=== PATIENT | male | born 1955 | race Caucasian/White ===

== ENCOUNTER → 2016-09-15 | Outpatient (CLI) | payer OTHER ==
[2016-09-15 17:19] LABS: CH 32.5; CHCM 32.6; HCT 43.4 % (39.0-53.0); HDW 2.39; MCH 32.3 pg (25.0-35.0); MCHC 32.3 g/dL (31.0-37.0); MCV 100.1 fL (80.0-100.0); Mean Platelet Volume 7.9; RBC 4.34 m/uL (4.30-5.90); RDW 13.3 % (11.5-15.5); WBC 8.8 k/uL (3.8-10.6)
[2016-09-15 17:28] LABS: Anion Gap 6 mmol/L; Blood Urea Nitrogen 18 mg/dL (9-20); Calcium 9.4 mg/dL (8.4-10.2); Carbon Dioxide 28 mmol/L (22-30); Chloride 107 mmol/L (98-107); Glucose 83 mg/dL (74-99); Non-African American GFR(MDRD) >60 (>60 ml/min/1.73 sqM); Potassium 4.8 mmol/L (3.5-5.1); Sodium 141 mmol/L (137-145)
== END | disposition home or self-care (01) ==
LOC: LABWHC1 16:55
PROVIDERS: ATTEND Internal Medicine Interventional Cardiology
DX: I25.10 Atherosclerotic heart disease of native coronary artery without angina pectoris (principal)
CPT/HCPCS: 36415; 80048; 85027

== ENCOUNTER 2016-09-19 06:32 | Day surgery (SDC) | payer OTHER ==
[2016-09-17 10:18] VITALS: BMI 25.6
[~2016-09-19 06:32] MED LIST: ALPRAZolam 0.25 MG TAB PO PRN; ALPRAZolam 0.5 MG TAB PO PRN; ASPIRIN 325 MG TAB PO STA; ATORVASTATIN 80 MG TAB PO STA; NITROGLYCERIN SL TABS 0.4 MG TAB SUBLINGUAL PRN; SODIUM CHLORIDE 0.9% 1,000 ML in EMPTY BAG 1 BAG IV ONE
[2016-09-19 07:01] VITALS: RESP 16; TEMP 98.1
[2016-09-19] MEDS ORDERED: diphenhydrAMINE 50 MG/ML 1 ML VIAL IVP ONE (07:49)
[2016-09-19] MEDS ORDERED: MIDAZOLAM 2 MG/2 ML VIAL IV ONE (07:49)
[2016-09-19] MEDS ORDERED: LIDOCAINE 2% INJ 20 MG/ML SQ ONE (07:54)
[2016-09-19] MEDS: VERAPAMIL SYRINGE (5 MG/10 ML) INTRAARTER ONE ×2 (07:56→08:11)
[2016-09-19] MEDS ORDERED: HYDROmorphone 2 MG/ML 1 ML SYRINGE IV ONE (08:06)
[2016-09-19] MEDS ORDERED: IOHEXOL 350 MG/ML 125ML BOTTLE INJ ONE (08:10)
[2016-09-19] MEDS ORDERED: RX INFO: IV CONTRAST WAS GIVEN 1 EACH MISC MISCELLANE PRN (08:26)
[2016-09-19] MEDS ORDERED: SODIUM CHLORIDE 0.9% 1,000 ML IV SCH (08:30)
[2016-09-19 14:27] VITALS: BP 118/79; PULSE 57
--- NOTE | 2016-09-19 17:16 | CC ---
DATE OF SERVICE: 09/19/2016 PERFORMING PHYSICIAN: Erik Cullen M.D., green chain operator. PROCEDURES PERFORMED: 1. Selective right and left coronary angiogram. 2. Left heart catheterization. 3. Left ventriculography. INDICATION: This is a pleasant 61-year-old male patient who is known to have coronary artery disease and prior stenting of the LAD. He was experiencing chest discomfort and exertional dyspnea. He was brought today to undergo a heart catheterization in view of the classical anginal symptoms. APPROACH: Right radial artery. COMPLICATIONS: None. LEVEL OF SEDATION: Moderate, with sedation length of 32 minutes. PROCEDURE DESCRIPTION: After obtaining informed consent, the patient was brought to the cardiac energy systems laboratory director. The right radial artery was cannulated using micropuncture technique. The micropuncture wire passed easily. Then I placed a 6 Lebanese sheath in the right radial artery. Subsequently I did selective right and left coronary angiogram using JR4 and JL3.5 catheters. After that I did left heart catheterization and LV gram using a 6 Lebanese pigtail catheter. The procedure was completed without any complication. SELECTIVE CORONARY ANGIOGRAM: 1. The right coronary artery. The right coronary artery is 100% occluded in the proximal portion and fills by collateral from the left coronary system. 2. The left main is angiographically normal. It bifurcates into the left circumflex and left anterior descending artery. 3. The left circumflex is a large-caliber vessel. It is a non-dominant vessel. The left circumflex is angiographically normal. In the mid portion it gives rise to a large first OM branch, which seems to be angiographically normal. 4. Left anterior descending artery. The proximal LAD is stented with mild in-stent restenosis. The mid LAD appeared to have mild disease only. The LAD distally appeared to be angiographically normal. The LAD in the mid portion gives rise to 2 small diagonal branches. HEMODYNAMICS: The left ventricular end-diastolic pressure was 16 to 20 mmHg and no gradient was identified across the aortic valve. Left ventriculography was performed in the MCCLELLAN projection using a power injection. The left ventricular systolic function appeared to be normal with an ejection fraction of 60%. CONCLUSION: 1. Chronic total occlusion of the proximal RCA which fills by collateral from the left coronary system. 2. Mild in-stent restenosis involving the proximal LAD stent. 3. Mild disease involving the left circumflex coronary artery. 4. Elevated left ventricular end-diastolic pressure. 5. Normal left ventricular systolic function. POST-PROCEDURE MANAGEMENT: 1. Maximize medical treatment. 2. Follow up with the patient.
--- NOTE | 2016-09-19 17:24 | LTR ---
September 19, 2016 RE: Khalif Soni Dear Juventino, Mr. Khalif Soni underwent a heart catheterization that showed chronic total occlusion of the right coronary artery which fills by collateral from the left coronary system. The LAD stent seems to be patent with a good flow. In view of this anatomy, I recommended maximizing medical treatment. I will follow up with the patient very closely, and I will keep you updated regarding him. Thank you for allowing me to participate in his care. Sincerely, EMILY SKINNER MD
== END 2016-09-19 14:05 | disposition home or self-care (01) ==
LOC: CATHCVL 06:32
PROVIDERS: ATTEND Internal Medicine Interventional Cardiology
DX: I25.10 Atherosclerotic heart disease of native coronary artery without angina pectoris (principal); I25.82 Chronic total occlusion of coronary artery; T82.858A Stenosis of other vascular prosthetic devices, implants and grafts, initial encounter; E78.5 Hyperlipidemia, unspecified; F17.210 Nicotine dependence, cigarettes, uncomplicated; Y71.3 Surgical instruments, materials and cardiovascular devices (including sutures) associated with adverse incidents; Z88.0 Allergy status to penicillin; Z82.49 Family history of ischemic heart disease and other diseases of the circulatory system; Z82.3 Family history of stroke; Z79.82 Long term (current) use of aspirin; Z79.899 Other long term (current) drug therapy
CPT/HCPCS: 93458; 99152; 99153; C1894; J2001; J2250; J1170; J1200; J1644; Q9967

== ENCOUNTER 2018-05-07 08:59 | Emergency (ER) | payer OTHER ==
[2018-05-07 09:09] VITALS: RESP 16
[2018-05-07] MEDS ORDERED: SODIUM CHLORIDE 0.9% 1,000 ML IV STA (09:12)
[2018-05-07 09:33] LABS: Basophils % (A) 0 %; Eosinophils # (A) 0.3 k/uL (0-0.7); Eosinophils % (A) 3 %; HCT 47.8 % (39.0-53.0); HGB 15.7 gm/dL (13.0-17.5); Lymphocytes # (A) 2.5 k/uL (1.0-4.8); Lymphocytes % (A) 24 %; MCH 32.3 pg (25.0-35.0); MCHC 32.9 g/dL (31.0-37.0); MCV 98.4 fL (80.0-100.0); Monocytes # (A) 0.5 k/uL (0-1.0); Monocytes % (A) 5 %; Neutrophils # (A) 6.8 k/uL (1.3-7.7); Neutrophils % (A) 66 %; Platelet Count 233 k/uL (150-450); RBC 4.86 m/uL (4.30-5.90); RDW 12.9 % (11.5-15.5); WBC 10.4 k/uL (3.8-10.6)
[2018-05-07 09:35] LABS: Appearance,Urine Clear (Clear); Bilirubin,Urine Negative (Negative); Blood,Urine Negative (Negative); Color,Urine Light Yellow; Glucose,Urine (UA) Negative (Negative); Ketones,Urine Negative (Negative); Leukocyte Esterase,Urine Negative (Negative); Nitrite,Urine Negative (Negative); Protein,Urine Negative (Negative); Specific Gravity,Urine 1.007 (1.001-1.035); Urobilinogen,Urine <2.0 mg/dL (<2.0)
[2018-05-07 09:46] LABS: INR 0.9 (<1.2); Partial Thromboplastin Time 25.7 sec (22.0-30.0); Prothrombin Time 9.9 sec (9.0-12.0)
--- NOTE | 2018-05-07 09:47 | ED ---
Abdominal Pain HPI - General Chief Complaint: Abdominal Pain Stated Complaint: lower abdominal pain Time Seen by Provider: 05/07/18 09:12 Source: patient, RN notes reviewed Mode of arrival: ambulatory Limitations: no limitations - History of Present Illness Initial Comments: 62-year-old male presents emergency Department chief complaint of lower abdominal pain 3 days. Patient states nothing makes the pain feel better or worse. He denies any change in bowel habits including diarrhea, melena, hematochezia, constipation. Patient has no dysuria, hematuria, nausea, vomiting. Patient states that the pain is all in her lower abdomen nonradiating. Denies any flank pain no history of bowel surgery or abdominal surgeries. - Related Data Previous Rx's Medication Instructions Recorded Ciprofloxacin HCl [Cipro] 500 mg PO Q12HR #20 tablet 05/07/18 metroNIDAZOLE [Flagyl] 500 mg PO TID #30 tab 05/07/18 Allergies Allergy/AdvReac Type Severity Reaction Status Date / Time Penicillins Allergy Unknown Verified 05/07/18 09:35 Childhood Review of Systems ROS Statement: Those systems with pertinent positive or pertinent negative responses have been documented in the HPI. ROS Other: All systems not noted in ROS Statement are negative. Past Medical History Past Medical History: Coronary Artery Disease (CAD), Myocardial Infarction (CT) Last Myocardial Infarction Date:: 1998 History of Any Multi-Drug Resistant Organisms: None Reported Past Surgical History: Heart Catheterization, Heart Catheterization With Stent, Orthopedic Surgery, Tonsillectomy Additional Past Surgical History / Comment(s): previous heart cath x2, one stent , left hand sx Past Anesthesia/Blood Transfusion Reactions: No Reported Reaction Date of Last Stent Placement:: unsure Past Psychological History: No Psychological Hx Reported Smoking Status: Current every day smoker Past Alcohol Use History: Occasional Past Drug Use History: None Reported - Past Family History Mother Family Medical History: Cancer General Exam Limitations: no limitations General appearance: alert, in no apparent distress Head exam: Present: atraumatic, normocephalic, normal inspection Eye exam: Present: normal appearance, PERRL, EOMI. Absent: scleral icterus, conjunctival injection, periorbital swelling ENT exam: Present: normal exam, normal oropharynx, mucous membranes moist Neck exam: Present: normal inspection, full ROM. Absent: tenderness, meningismus, lymphadenopathy Respiratory exam: Present: normal lung sounds bilaterally. Absent: respiratory distress, wheezes, rales, rhonchi, stridor Cardiovascular Exam: Present: regular rate, normal rhythm, normal heart sounds. Absent: systolic murmur, diastolic murmur, rubs, gallop, clicks GI/Abdominal exam: Present: soft, tenderness (Mild right lower and suprapubic tenderness), normal bowel sounds. Absent: distended, guarding, rebound, rigid Course Vital Signs 05/07/18 09:06 Temperature 97.6 F Pulse Rate 63 Respiratory 16 Rate Blood Pressure 154/79 O2 Sat by Pulse 100 Oximetry Medical Decision Making - Medical Decision Making 62-year-old male presented for lower abdominal pain. Patient had workup including lab work, urinalysis and CT CT shows evidence of diverticulitis. Patient is tolerating oral intake. There is no evidence of perforation or abscess. Patient be started on Cipro and Flagyl follow-up PCP and recommend colostomy after treatment. Return parameters were discussed. - Lab Data Result diagrams: 05/07/18 09:15 05/07/18 09:15 Lab Results 05/07/18 05/07/18 05/07/18 Range/Units 09:15 09:15 09:15 WBC 10.4 (3.8-10.6) k/uL RBC 4.86 (4.30-5.90) m/uL Hgb 15.7 (13.0-17.5) gm/dL Hct 47.8 (39.0-53.0) % MCV 98.4 (80.0-100.0) fL MCH 32.3 (25.0-35.0) pg MCHC 32.9 (31.0-37.0) g/dL RDW 12.9 (11.5-15.5) % Plt Count 233 (150-450) k/uL Neutrophils % 66 % Lymphocytes % 24 % Monocytes % 5 % Eosinophils % 3 % Basophils % 0 % Neutrophils # 6.8 (1.3-7.7) k/uL Lymphocytes # 2.5 (1.0-4.8) k/uL Monocytes # 0.5 (0-1.0) k/uL Eosinophils # 0.3 (0-0.7) k/uL Basophils # 0.0 (0-0.2) k/uL PT 9.9 (9.0-12.0) sec INR 0.9 (<1.2) APTT 25.7 (22.0-30.0) sec Sodium 141 (137-145) mmol/L Potassium 5.1 (3.5-5.1) mmol/L Chloride 108 H (98-107) mmol/L Carbon Dioxide 27 (22-30) mmol/L Anion Gap 6 mmol/L BUN 19 (9-20) mg/dL Creatinine 0.92 (0.66-1.25) mg/dL Est GFR (CKD-EPI)AfAm >90 (>60 ml/min/1.73 sqM) Est GFR (CKD-EPI)NonAf 90 (>60 ml/min/1.73 sqM) Glucose 100 H (74-99) mg/dL Calcium 9.8 (8.4-10.2) mg/dL Total Bilirubin 0.8 (0.2-1.3) mg/dL AST 20 (17-59) U/L ALT 33 (21-72) U/L Alkaline Phosphatase 82 (38-126) U/L Total Protein 7.4 (6.3-8.2) g/dL Albumin 4.4 (3.5-5.0) g/dL Amylase 45 (30-110) U/L Lipase 78 (23-300) U/L Urine Color Urine Appearance (Clear) Urine pH (5.0-8.0) Ur Specific Lewis (1.001-1.035) Urine Protein (Negative) Urine Glucose (UA) (Negative) Urine Ketones (Negative) Urine Blood (Negative) Urine Nitrite (Negative) Urine Bilirubin (Negative) Urine Urobilinogen (<2.0) mg/dL Ur Leukocyte Esterase (Negative) 05/07/18 Range/Units 09:15 WBC (3.8-10.6) k/uL RBC (4.30-5.90) m/uL Hgb (13.0-17.5) gm/dL Hct (39.0-53.0) % MCV (80.0-100.0) fL MCH (25.0-35.0) pg MCHC (31.0-37.0) g/dL RDW (11.5-15.5) % Plt Count (150-450) k/uL Neutrophils % % Lymphocytes % % Monocytes % % Eosinophils % % Basophils % % Neutrophils # (1.3-7.7) k/uL Lymphocytes # (1.0-4.8) k/uL Monocytes # (0-1.0) k/uL Eosinophils # (0-0.7) k/uL Basophils # (0-0.2) k/uL PT (9.0-12.0) sec INR (<1.2) APTT (22.0-30.0) sec Sodium (137-145) mmol/L Potassium (3.5-5.1) mmol/L Chloride (98-107) mmol/L Carbon Dioxide (22-30) mmol/L Anion Gap mmol/L BUN (9-20) mg/dL Creatinine (0.66-1.25) mg/dL Est GFR (CKD-EPI)AfAm (>60 ml/min/1.73 sqM) Est GFR (CKD-EPI)NonAf (>60 ml/min/1.73 sqM) Glucose (74-99) mg/dL Calcium (8.4-10.2) mg/dL Total Bilirubin (0.2-1.3) mg/dL AST (17-59) U/L ALT (21-72) U/L Alkaline Phosphatase (38-126) U/L Total Protein (6.3-8.2) g/dL Albumin (3.5-5.0) g/dL Amylase (30-110) U/L Lipase (23-300) U/L Urine Color Light Yellow Urine Appearance Clear (Clear) Urine pH 5.0 (5.0-8.0) Ur Specific Lewis 1.007 (1.001-1.035) Urine Protein Negative (Negative) Urine Glucose (UA) Negative (Negative) Urine Ketones Negative (Negative) Urine Blood Negative (Negative) Urine Nitrite Negative (Negative) Urine Bilirubin Negative (Negative) Urine Urobilinogen <2.0 (<2.0) mg/dL Ur Leukocyte Esterase Negative (Negative) Disposition Clinical Impression: Diverticulitis Disposition: HOME SELF-CARE Condition: Stable Instructions (If sedation given, give patient instructions): Diverticulitis (ED ), Diverticulitis Diet (ED) Additional Instructions: Please return to the Emergency Department if symptoms worsen or any other concerns. Prescriptions: Ciprofloxacin HCl [Cipro] 500 mg PO Q12HR #20 tablet metroNIDAZOLE [Flagyl] 500 mg PO TID #30 tab Is patient prescribed a controlled substance at d/c from ED?: No Referrals: Juventino Bah MD [Primary Care Provider] - 1-2 days Time of Disposition: 11:04
[2018-05-07 09:50] LABS: ALT 33 U/L (21-72); AST 20 U/L (17-59); Albumin 4.4 g/dL (3.5-5.0); Alkaline Phosphatase 82 U/L (38-126); Amylase 45 U/L (30-110); Anion Gap 6 mmol/L; Blood Urea Nitrogen 19 mg/dL (9-20); Calcium 9.8 mg/dL (8.4-10.2); Carbon Dioxide 27 mmol/L (22-30); Chloride 108 mmol/L (98-107); Glucose 100 mg/dL (74-99); Lipase 78 U/L (23-300); Potassium 5.1 mmol/L (3.5-5.1); Sodium 141 mmol/L (137-145); Total Bilirubin 0.8 mg/dL (0.2-1.3); Total Protein 7.4 g/dL (6.3-8.2)
--- NOTE | 2018-05-07 10:27 | CT ---
EXAMINATION TYPE: CT abdomen pelvis w con DATE OF EXAM: 05/07/2018 COMPARISON: None INDICATION: Lower abd pain DLP: 851.8 mGycm, Automated exposure control for dose reduction was used. CONTRAST: 100 mL of Isovue 300. Study performed without Oral Contrast TECHNIQUE: Axial images were obtained from above the diaphragm to the pubic rami in the axial plane a t 5 mm thick sections. Reconstructed images are reviewed on the computer in the coronal plane. FINDINGS: Limited CT sections are obtained the lung bases. The lung bases are clear. CT ABDOMEN: Liver: Normal Spleen: Normal Pancreas: Normal Adrenal glands: The adrenal glands are normal. Gallbladder: Normal Kidneys: No masses are evident. No hydronephrosis is present. No cysts are present. Delayed images were obtained through the kidneys, which remain unremarkable. Aorta: Vascular calcification is within the aorta. Inferior vena cava: Normal. CT PELVIS: Loops of bowel within the abdomen are unremarkable. Within the pelvis there are scattered diverticuli with some mild inflammatory change adjacent to the sigmoid colon. There is a larger diverticulum wit h some air in the lateral proximal sigmoid colon measuring 2.1 cm. Abscess formation is considered le ss likely study is performed without oral contrast limiting bowel evaluation. Appendix: Normal as visualized. Urinary bladder: Normal. Genitourinary structures: Prostate is slightly prominent. Osseous structures: No suspicious lytic or sclerotic lesions. IMPRESSIONS: 1. Findings compatible with a mild diverticulitis sigmoid colon. There is a large diverticulum prese nt. Follow-up can be performed as clinically indicated.
[2018-05-07 11:10] VITALS: BP 135/61; PULSE 72; TEMP 98
== END 2018-05-07 11:10 | disposition home or self-care (01) ==
LOC: EC 08:59
DX: K57.32 Diverticulitis of large intestine without perforation or abscess without bleeding (principal); I25.10 Atherosclerotic heart disease of native coronary artery without angina pectoris; I25.2 Old myocardial infarction; F17.200 Nicotine dependence, unspecified, uncomplicated; Z88.0 Allergy status to penicillin; Z95.5 Presence of coronary angioplasty implant and graft
CPT/HCPCS: 36415; 80053; 82150; 83690; 85025; 85610; 85730; 81003; 74177; 99284; 96360; Q9967

== ENCOUNTER → 2020-02-07 | Outpatient (CLI) | payer OTHER | END | disposition home or self-care (01) | LOC: LABWHC1 10:40 | PROVIDERS: ATTEND Family Medicine | DX: Z20.828 Contact with and (suspected) exposure to other viral communicable diseases (principal) | CPT/HCPCS: U0003; C9803 ==

== ENCOUNTER → 2021-08-23 | Outpatient (CLI) | payer OTHER ==
--- NOTE | 2021-08-23 13:41 | CT ---
EXAMINATION TYPE: CT abdomen pelvis w con DATE OF EXAM: 08/23/2021 COMPARISON: 05/07/2018 HISTORY: Pelvic pain, history of diverticulosis. CT DLP: 1075.4 mGycm Automated exposure control for dose reduction was used. TECHNIQUE: Helical acquisition of images was performed from the lung bases through the pelvis. CONTRAST: Performed with Oral Contrast and with IV Contrast, patient injected with 100ml mL of Isovue 300. FINDINGS: The visualized lung bases are clear. The gallbladder is normal without gallstones, distention, gallbladder wall thickening or pericholecys tic fluid. There is no biliary ductal dilatation. There is no focal mass within the liver. 5 to 6 mm low density lesion/cyst is seen within the body of the pancreas which is not clearly identi fied on the prior study. The spleen and adrenal glands are unremarkable. The kidneys enhance promptly and symmetrically and there is no solid renal mass or hydronephrosis. Th ere small exophytic cysts of both kidneys which were seen previously and are stable. The caliber of t he abdominal aorta is normal. The bowel loops are normal in caliber and there is no evidence of obstruction. There is moderate diverticulosis of the colon. There is a prominent diverticulum of the sigmoid colon which was seen previously and there is very mild adjacent inflammation in the pericolic fat suggest the presence of mild diverticulitis. There is no definite evidence of abscess. There is no free intra peritoneal air. The osseous structures are intact. IMPRESSION: 1. Findings consistent with mild diverticulitis of the sigmoid colon as described above. 2. 5-6 mm low density lesion within the body the pancreas. Short-term follow-up CT abdomen in 3-4 mo nths with attention to the pancreas is recommended.
== END | disposition home or self-care (01) ==
LOC: RADCTMAIN 11:29
PROVIDERS: ATTEND Family Medicine
DX: K57.30 Diverticulosis of large intestine without perforation or abscess without bleeding (principal)
CPT/HCPCS: 74177; Q9967

== ENCOUNTER → 2021-11-20 | Outpatient (CLI) | payer OTHER, MEDICARE ==
--- NOTE | 2021-11-21 08:13 | XR ---
EXAMINATION TYPE: XR chest 2V DATE OF EXAM: 11/20/2021 COMPARISON: 27/02/2015 TECHNIQUE: PA and lateral views submitted. HISTORY: Cough FINDINGS: The lungs are clear and there is no pneumothorax, pleural effusion, or focal pneumonia. Hyperinflat ion compatible COPD. Apical pleural thickening noted. Atherosclerotic change aorta. Heart size normal . No overt failure. Hypertrophic and degenerative change spine. IMPRESSION: 1. No acute process. Correlate for COPD.
== END | disposition home or self-care (01) ==
LOC: RADXRMAIN 17:27
PROVIDERS: ATTEND Family Medicine
DX: J44.9 Chronic obstructive pulmonary disease, unspecified (principal)
CPT/HCPCS: 71046

== ENCOUNTER 2022-02-03 11:26 | Emergency (ER) | payer MEDICARE, OTHER ==
--- NOTE | 2022-02-03 12:40 | XR ---
EXAMINATION TYPE: XR chest 2V DATE OF EXAM: 02/03/2022 12:21 PM COMPARISON: Chest radiographs from 11/20/2021 TECHNIQUE: XR chest 2V Frontal and lateral views of the chest. CLINICAL INDICATION:Male, 66 years old with history of cough; FINDINGS: Lungs/Pleura: Bilateral midlung new subtle opacities. There is no evidence of pleural effusion, focal consolidation, or pneumothorax. Pulmonary vascularity: Unremarkable. Heart/mediastinum: Cardiomediastinal silhouette is unremarkable. Musculoskeletal: No acute osseous pathology. IMPRESSION: Subtle opacities within the mid lungs which may represent an atypical pneumonia.
--- NOTE | 2022-02-03 14:10 | ED ---
General Adult HPI - General Chief complaint: Upper Respiratory Infection Stated complaint: Cough,SOB Time Seen by Provider: 02/03/22 13:53 Source: patient, RN notes reviewed, old records reviewed Mode of arrival: ambulatory Limitations: no limitations - History of Present Illness Initial comments: 66-year-old male with cough and congestion and myalgia for the past 48 hours. Patient has had diffuse myalgia, productive cough. He has been diagnosed as COPD, he states he quit smoking at the onset of this illness. No known sick contacts. - Related Data Previous Rx's Medication Instructions Recorded Ciprofloxacin HCl [Cipro] 500 mg PO Q12HR #20 tablet 05/07/18 metroNIDAZOLE [Flagyl] 500 mg PO TID #30 tab 05/07/18 Azithromycin [Zithromax Z Pack] 1 tab PO DIRECTED #6 tab 02/03/22 Oseltamivir [Tamiflu] 75 mg PO Q12HR 5 Days #10 cap 02/03/22 predniSONE 50 mg PO DAILY #5 tab 02/03/22 Allergies Allergy/AdvReac Type Severity Reaction Status Date / Time Penicillins Allergy Unknown Verified 02/03/22 12:09 Childhood Review of Systems ROS Statement: Those systems with pertinent positive or pertinent negative responses have been documented in the HPI. ROS Other: All systems not noted in ROS Statement are negative. Past Medical History Past Medical History: Coronary Artery Disease (CAD), COPD, Myocardial Infarction ([place]) Last Myocardial Infarction Date:: 1998 History of Any Multi-Drug Resistant Organisms: None Reported Past Surgical History: Heart Catheterization, Heart Catheterization With Stent, Orthopedic Surgery, Tonsillectomy Additional Past Surgical History / Comment(s): previous heart cath x2, one stent, left hand sx Past Anesthesia/Blood Transfusion Reactions: No Reported Reaction Date of Last Stent Placement:: unsure Past Psychological History: No Psychological Hx Reported Smoking Status: Current every day smoker Past Alcohol Use History: Occasional Past Drug Use History: None Reported - Past Family History Mother Family Medical History: Cancer General Exam Limitations: no limitations General appearance: alert, in no apparent distress Head exam: Present: atraumatic, normocephalic Eye exam: Present: normal appearance, PERRL ENT exam: Present: mucous membranes dry Respiratory exam: Present: wheezes, rhonchi, other (Bronchospastic cough). Abse nt: respiratory distress Cardiovascular Exam: Present: regular rate, normal rhythm GI/Abdominal exam: Present: soft. Absent: distended, tenderness, guarding Neurological exam: Present: alert, CN II-XII intact. Absent: motor sensory deficit Skin exam: Present: warm, dry, intact. Absent: cyanosis, diaphoretic Course Vital Signs 02/03/22 12:06 Temperature 101.1 F H Pulse Rate 93 Respiratory 22 Rate Blood Pressure 155/81 O2 Sat by Pulse 99 Oximetry Medical Decision Making - Medical Decision Making 66-year-old male with cough, myalgia. Patient does test positive for influenza A. Patient has a broken spastic cough, wheezing, COPD history. His heart rate and oxygenation are within normal limits. At this point we will observe closely in the outpatient setting, treatment for both influenza and COPD exacerbation. Patient has albuterol at home. Case discussed with Dr. Bah. - Lab Data Lab Results 02/03/22 02/03/22 Range/Units 12:13 12:13 Coronavirus (PCR) Not Detected (Not Detectd) Influenza Type A RNA Detected H (Not Detectd) Influenza Type B (PCR) Not Detected (Not Detectd) Disposition Clinical Impression: Influenza, COPD exacerbation Disposition: HOME SELF-CARE Condition: Fair Instructions (If sedation given, give patient instructions): Influenza (ED), COPD (Chronic Obstructive Pulmonary Disease) (ED) Prescriptions: predniSONE 50 mg PO DAILY #5 tab Oseltamivir [Tamiflu] 75 mg PO Q12HR 5 Days #10 cap Azithromycin [Zithromax Z Pack] 1 tab PO DIRECTED #6 tab Is patient prescribed a controlled substance at d/c from ED?: No Referrals: Juventino Bah MD [Primary Care Provider] - 1-2 days Time of Disposition: 14:06
[2022-02-03] MEDS ORDERED: ACETAMINOPHEN TAB 500 MG TAB PO STA (14:17)
[2022-02-03 14:20] VITALS: RESP 20
[2022-02-03 14:25] VITALS: BP 150/70; PULSE 97; TEMP 101.8
== END 2022-02-03 14:57 | disposition home or self-care (01) ==
LOC: EC 11:26
DX: J11.1 Influenza due to unidentified influenza virus with other respiratory manifestations (principal); J45.901 Unspecified asthma with (acute) exacerbation; I25.10 Atherosclerotic heart disease of native coronary artery without angina pectoris; I21.9 Acute myocardial infarction, unspecified; F17.200 Nicotine dependence, unspecified, uncomplicated; Z88.0 Allergy status to penicillin; Z20.822 Contact with and (suspected) exposure to COVID-19
CPT/HCPCS: 71046; 87502; 87635; 99285

== ENCOUNTER → 2022-02-10 | Outpatient (CLI) | payer MEDICARE, OTHER ==
[2022-02-10 23:15] LABS: Basophils # (A) 0.07 X 10*3/uL (0.00-0.10); Basophils % (A) 0.6 %; Eosinophils # (A) 0.13 X 10*3/uL (0.04-0.35); Eosinophils % (A) 1.1 %; HCT 44.6 % (39.6-50.0); HGB 14.8 g/dL (13.0-17.0); Immature Grans, Automated 4.3 %; Lymphocytes # (A) 2.78 X 10*3/uL (0.90-5.00); Lymphocytes % (A) 23.2 %; MCH 31.3 pg (27.0-32.0); MCHC 33.2 g/dL (32.0-37.0); MCV 94.3 fL (80.0-97.0); Monocytes # (A) 0.98 X 10*3/uL (0.20-1.00); Monocytes % (A) 8.2 %; NRBC Per 100 WBC 0 /100 WBCS (0.0-0.0); Neutrophils % (A) 62.6 %; Platelet Count 328 X 10*3/uL (140-440); RBC 4.73 X 10*6/uL (4.40-5.60); RDW 11.9 % (11.5-14.5); WBC 11.98 X 10*3/uL (4.50-10.00)
[2022-02-10 23:32] LABS: African American GFR (CKD) 108.6 (60.0-200.0); Anion Gap 9.3 mmol/L (10.00-18.00); Blood Urea Nitrogen 20.5 mg/dL (9.0-27.0); Carbon Dioxide 25.7 mmol/L (20.0-27.5); Non-African American GFR(CKD) 93.7 (60.0-200.0); Potassium 4.6 mmol/L (3.5-5.5)
== END | disposition home or self-care (01) ==
LOC: LABPAT 16:42
PROVIDERS: ATTEND Internal Medicine Interventional Cardiology
DX: Z01.812 Encounter for preprocedural laboratory examination (principal); R07.9 Chest pain, unspecified
CPT/HCPCS: 80051; 82565; 84520; 85025

== ENCOUNTER → 2022-06-27 | Outpatient (CLI) | payer OTHER, MEDICARE ==
--- NOTE | 2022-06-27 16:11 | US ---
EXAMINATION TYPE: US venous doppler duplex UE LT DATE OF EXAM: 06/27/2022 COMPARISON: NONE CLINICAL HISTORY: R22.32. coldness and numbness left hand and purple 2nd and 3rd digit after IV 2 wee ks ago SIDE PERFORMED: left Grayscale, color doppler, spectral doppler imaging performed of the deep veins of the upper extremiti es. There is normal flow, compressibility and vascular waveforms. Left Arm: no evidence of DVT as visualized IMPRESSION: No ultrasound evidence for deep venous thrombosis of the left upper extremity.
--- NOTE | 2022-06-30 07:16 | US ---
EXAMINATION TYPE: US arterial UE multi level DATE OF EXAM: 06/27/2022 3:41 PM CLINICAL HISTORY: LUE; R22.32. Cardiac stent 25 years ago. coldness and numbness left hand, discolora tion 2nd and 3rd digit for 2 weeks History of: Smoker: yes Hypertension: yes Diabetic: no Hyperlipidemia: yes TIA/CVA: no Previous Vascular Surgery: yes CAD: AK: yes Vascular Ulcers: no Doppler Waveforms: Right: Axillary: Multiphasic Brachial: Multiphasic Radial: Multiphasic Ulnar: Multiphasic Left: Axillary: Multiphasic Brachial: Multiphasic Radial: Multiphasic Ulnar: Multiphasic Wrist Brachial Indices: Right: 1.04 Left: 1.03 IMPRESSION: Normal study except for left first second and third fingers which there is monophasic wa veform. Cannot exclude diminished perfusion at this level. Further workup and follow-up advised.
== END | disposition home or self-care (01) ==
LOC: RADUSWWP 14:38
PROVIDERS: ATTEND Family Medicine
DX: R22.32 Localized swelling, mass and lump, left upper limb (principal)
CPT/HCPCS: 93923

== ENCOUNTER → 2022-07-15 | Outpatient (CLI) | payer OTHER, MEDICARE ==
[2022-07-15 10:40] LABS: African American GFR (CKD) >90 (>60 ml/min/1.73 sqM); Blood Urea Nitrogen 17 mg/dL (9-20); Non-African American GFR(CKD) 78 (>60 ml/min/1.73 sqM)
--- NOTE | 2022-07-15 12:31 | CT ---
EXAMINATION TYPE: CT upper extremity LT w con CT DLP: 708.6 mGycm, Automated exposure control for dose reduction was used. DATE OF EXAM: 07/15/2022 11:52 AM COMPARISON: Bilateral upper extremity arterial ultrasound 06/27/2022. CLINICAL INDICATION:Male, 66 years old with history of I99.8 OTHER DISORDER OF CIRCULATORY SYSTEM; PH H, left arm numbness TECHNIQUE: Axial images were obtained of the left upper extremity after the uneventful administration of 100 cc of Isovue-370 intravenously. Additional coronal and sagittal reformatted images and soft tissue and bone window were obtained for review. FINDINGS: There is no evidence of fracture, subluxation, or dislocation. No significant soft tissue swelling or joint effusion is identified. No focal muscular atrophy or edema is identified. No radiop aque foreign body identified. No atherosclerotic plaque identified. Essentially nondiagnostic examination for the assessment of lef t upper extremity arterial vasculature due to IV placed in the left upper extremity with prominent ve nous vasculature creating streak artifact. Limited view of the left subclavian, axillary, and brachia l arteries appear grossly patent. The remaining vasculature of the distal left upper extremity is not visualized secondary to limitations above. The visualized portion of the left lung is clear. Several cysts are demonstrated within the left kidn ey. IMPRESSION: Essentially nondiagnostic examination for the assessment of left upper extremity arterial vasculature due to IV placed in the left upper extremity with prominent venous vasculature creating streak artif act. Limited view of the left subclavian, axillary, and brachial arteries appear grossly patent. The remaining vasculature of the distal left upper extremity is not visualized secondary to limitations a alejandra. Consider further evaluation with arteriogram.
== END | disposition home or self-care (01) ==
LOC: RADCTMAIN 09:51
PROVIDERS: ATTEND Internal Medicine Interventional Cardiology
DX: I99.8 Other disorder of circulatory system (principal)
CPT/HCPCS: 82565; 84520; 73201; 36415; Q9967

== ENCOUNTER 2022-07-18 09:57 | Day surgery (SDC) | payer OTHER, MEDICARE ==
[~2022-07-18 09:57] MED LIST changes: -ALPRAZolam 0.5 MG TAB PO PRN; -ASPIRIN 325 MG TAB PO STA; -ATORVASTATIN 80 MG TAB PO STA; -NITROGLYCERIN SL TABS 0.4 MG TAB SUBLINGUAL PRN; +SODIUM CHLORIDE 0.9% 1,000 ML IV ONE
[2022-07-18] MEDS ORDERED: ASPIRIN 81 MG ONE (10:07)
[2022-07-18 10:22] VITALS: RESP 16; TEMP 98.4
[2022-07-18 10:25] LABS: Basophils % (A) 1 %; Eosinophils # (A) 0.3 k/uL (0-0.7); Eosinophils % (A) 4 %; HCT 47.3 % (39.0-53.0); HGB 15.6 gm/dL (13.0-17.5); Lymphocytes % (A) 32 %; MCHC 32.9 g/dL (31.0-37.0); MCV 97.2 fL (80.0-100.0); Mean Platelet Volume 9.2; Monocytes # (A) 0.4 k/uL (0-1.0); Monocytes % (A) 6 %; Neutrophils # (A) 3.5 k/uL (1.3-7.7); Neutrophils % (A) 56 %; Platelet Count 186 k/uL (150-450); RBC 4.86 m/uL (4.30-5.90); RDW 12.4 % (11.5-15.5); WBC 6.3 k/uL (3.8-10.6)
[2022-07-18] MEDS ORDERED: fentaNYL (PF) 50 MCG/ML 2 ML AMP ONE (10:33)
[2022-07-18 10:41] LABS: Calcium 9.1 mg/dL (8.4-10.2); Potassium 4.8 mmol/L (3.5-5.1)
[2022-07-18] MEDS ORDERED: MIDAZOLAM 2 MG/2 ML VIAL IV ONE (10:48)
[2022-07-18] MEDS ORDERED: fentaNYL (PF) 50 MCG/ML 2 ML AMP IV ONE (10:49)
[2022-07-18] MEDS ORDERED: SODIUM CHLORIDE 0.9% 1,000 ML IV SCH (11:15)
[2022-07-18] MEDS ORDERED: IOPAMIDOL-370 100ML BTL INJ ONE (11:16)
[2022-07-18] MEDS ORDERED: NALOXONE 0.4 MG/ML 1 ML VIAL IVP PRN (11:16)
[2022-07-18] MEDS ORDERED: SODIUM CHLORIDE 0.9% 1,000 ML in EMPTY BAG 1 BAG IV SCH (11:30)
--- NOTE | 2022-07-18 11:46 | IR ---
EXAMINATION TYPE: IR angio extremity LT DATE OF EXAM: 07/18/2022 COMPARISON: NONE HISTORY: Fluoroscopy time. Fluoroscopy was provided to the referring clinician.
[2022-07-18 15:29] VITALS: BP 134/75; PULSE 61
[2022-07-19] MEDS ORDERED: ASPIRIN 325 MG TAB PO PRN (07:00)
--- NOTE | 2022-07-19 08:50 | CC ---
CARDIAC CATHETERIZATION REPORT PERFORMING PHYSICIAN: Dr. Erik Cullen. PROCEDURES PERFORMED: 1. Left upper extremity arterial angiogram. 2. Ultrasound-guided access of the right common femoral artery. 3. Right common femoral artery angiogram. 4. Gradient measurement across the right iliac artery. INDICATIONS: Evidence of critical limb ischemia of the left hand. APPROACH: Right common femoral artery. COMPLICATIONS: None. LEVEL OF SEDATION: Moderate, with sedation length of 28 minutes. DESCRIPTION OF PROCEDURE: After obtaining informed consent, the patient was brought to the cardiac canvas shop laborer. The right radial artery was cannulated using micropuncture technique, the micropuncture wire passed easily and that was performed under ultrasound, then I placed initially the micropuncture sheath over the wire. Then the micropuncture sheath was exchanged over an 0.035 wire into a 5-Turkish sheath. After that, I did engage and select the left subclavian using Rico right catheter. Subsequently, an 0.035 wire was advanced to the left subclavian. Then, the Rosas right catheter was exchanged over an 0.035 wire into multipurpose catheter. Subsequently, I did selective left lower extremity angiogram and by doing that, I performed an angiogram of the left subclavian and left axillary artery and left brachial artery as well as left ulnar and radial artery and left hand as well. Please note that I did perform an aortic arch angiogram at the beginning using a power injection and using digital subtraction. After that, because we had difficulty crossing the right iliac artery using 0.035 J- wire, I did do gradient measurement of the right common iliac artery and that came into be around 18 mmHg. After that, I did selective right common femoral artery angiogram. The procedure was completed with no complication. Selective left upper extremity arterial angiogram: Initially, we did perform an aortic arch angiogram and that showed true Bovine arch. Subsequently, the left subclavian and left axillary and left ulnar and radial arteries showed normal angiogram. Performing the left hand angiogram showed poor opacification of the third and fourth fingers. CONCLUSIONS: 1. True Bovine arch. 2. Normal left subclavian artery and left axillary artery and left brachial and left ulnar and radial arteries. 3. Poor opacification of the arteries at the level of the digit and that is at the level of the third and fourth digits. 4. Gradient across the right iliac artery appeared to be in the range of 18 mmHg. POSTPROCEDURE MANAGEMENT: Consider medical treatment at this point. Consider lower extremities arterial duplex study to assess for any lower extremities PAD. MMODL / IJN: [id number] /
== END 2022-07-18 15:30 | disposition home or self-care (01) ==
LOC: CATHCVL 09:57
PROVIDERS: ATTEND Internal Medicine Interventional Cardiology
DX: I25.10 Atherosclerotic heart disease of native coronary artery without angina pectoris (principal); Q25.49 Other congenital malformations of aorta
CPT/HCPCS: 36245; 75716; 36221; 80048; 85025; 99152; 99153; C1760; C1769 ×3; C1894 ×2; J2250; J3010; Q9967

== ENCOUNTER → 2022-09-17 | Outpatient (CLI) | payer MEDICARE ==
[2022-09-17 11:04] LABS: African American GFR (CKD) 88 (>60 ml/min/1.73 sqM); Blood Urea Nitrogen 16 mg/dL (9-20); Non-African American GFR(CKD) 76 (>60 ml/min/1.73 sqM)
--- NOTE | 2022-09-17 13:18 | CT ---
EXAMINATION TYPE: CT angio abd aorta w/Runoff DATE OF EXAM: 09/17/2022 COMPARISON: CT abdomen and pelvis August 23, 2021 HISTORY: bilateral leg numbness CT DLP: 2267.5 mGycm, Automated Exposure Control for Dose Reduction was Utilized. CONTRAST: CTA scan of the abdomen and pelvis is performed without oral and without and with IV Contrast, patien t injected with 100 mL of Isovue 370. Three-D reconstructed images were created on an independent wor kstation and reviewed. FINDINGS: VASCULAR: Small caliber but patent celiac artery. Patent SMA. Patent bilateral single renal arteries . Mild to moderate peripheral mixed plaque along the descending aorta without significant stenosis. P atent AWA. [id number] peripheral plaque in the common iliac arteries without significant stenos is. No significant plaque or stenosis in the external iliac arteries bilaterally. Mild to moderate pe ripheral plaque at the common femoral artery level. No significant stenosis. Mild to moderate peripheral plaque along the mid to distal superficial femoral arteries with more sev ere calcified plaque at the distal level. No significant stenosis clearly seen. Mild peripheral plaqu e scattered throughout the popliteal arteries. No significant stenosis. There is more prominent calcified plaque at the bifurcation and trifurcation bilaterally. Significant stenosis at this level cannot be excluded. There is fairly symmetric three-vessel flow in the mid le gs. There is diminished to vessel flow in the distal left leg with only patent anterior tibial artery seen. Long segment occlusion of the posterior tibial artery is identified with reconstitution near i mage 193 series 7. Evaluation past the ankle joints is suboptimal. LUNG BASES: Subcentimeter hypodense lesion right hepatic dome image 24 series 3 is too small to furth er characterize but presumably benign. LIVER/GB: No significant abnormality is appreciated. PANCREAS: No significant abnormality is seen. SPLEEN: No significant abnormality is seen. ADRENALS: No significant abnormality is seen. KIDNEYS: Stable 3 mm nonobstructing calculus in the periphery upper pole right kidney axial image 51 series 3. There are simple appearing thin-walled cysts redemonstrated scattered throughout both kidne ys. BOWEL: Appendix measures upper limits of normal in size from base of cecum. Colonic diverticulosis re demonstrated. No CT evidence for acute diverticulitis.. PROSTATE/SEMINAL VESICLES: No gross abnormality seen. LYMPH NODES: No greater than 1cm abdominal or pelvic lymph nodes are appreciated. OSSEOUS STRUCTURES: No significant abnormality is seen. Lower extremities: No significant abnormality is seen. OTHER: No significant additional abnormality is seen. IMPRESSION: Severe calcified plaque at the bifurcation and trifurcation believed to be causing signif icant stenosis and diminished perfusion below proximal to mid leg level bilaterally. There is long se gment occlusion of the posterior tibial artery in the mid to distal right leg. Findings consistent wi th significant peripheral arterial disease. Advise vascular surgical referral.
== END | disposition home or self-care (01) ==
LOC: RADCTMAIN 10:15
PROVIDERS: ATTEND Internal Medicine Interventional Cardiology
DX: I65.23 Occlusion and stenosis of bilateral carotid arteries (principal); I25.10 Atherosclerotic heart disease of native coronary artery without angina pectoris
CPT/HCPCS: 82565; 84520; 75635; 36415; Q9967

== ENCOUNTER → 2022-10-15 | Outpatient (CLI) | payer MEDICARE ==
[2022-10-15 15:34] LABS: Basophils # (A) 0.06 X 10*3/uL (0.00-0.10); Basophils % (A) 0.7 %; Eosinophils # (A) 0.31 X 10*3/uL (0.04-0.35); Eosinophils % (A) 3.8 %; HCT 45.9 % (39.6-50.0); HGB 14.8 d/dL (12.0-15.0); Lymphocytes % (A) 28.3 %; MCH 31.9 pg (27.0-32.0); MCHC 32.2 d/dL (32.0-37.0); MCV 98.9 FL (80.0-97.0); Monocytes # (A) 0.65 X 10*3/uL (0.20-1.00); NRBC Per 100 WBC 0 X 10*3/uL (0.00-0.01); Neutrophils # (A) 4.74 X 10*3/uL (1.80-7.70); Neutrophils % (A) 58.5 %; Platelet Count 256 X 10*3/uL (140-440); RBC 4.64 X 10*6/uL (4.40-5.60); RDW 12.2 % (11.5-14.5); WBC 8.12 X 10*3/uL (4.50-10.00)
[2022-10-15 16:17] LABS: Blood Urea Nitrogen 23.3 mg/dL (9.0-27.0); Carbon Dioxide 25.7 mmol/L (21.6-31.8); Chloride 105 mmol/L (96-109); Potassium 5.7 mmol/L (3.5-5.5); Sodium 140 mmol/L (135-145)
== END | disposition home or self-care (01) ==
LOC: LABPAT 10:11
PROVIDERS: ATTEND Internal Medicine Interventional Cardiology
DX: Z01.812 Encounter for preprocedural laboratory examination (principal); I25.10 Atherosclerotic heart disease of native coronary artery without angina pectoris
CPT/HCPCS: 36415; 80051; 82565; 84520; 85025

== ENCOUNTER 2022-10-17 07:20 | Day surgery (SDC) | payer MEDICARE ==
[~2022-10-17 07:20] MED LIST changes: +ASPIRIN 325 MG TAB PO PRN; +HEPARIN SODIUM,PORCINE 10,000 UNIT in SODIUM CHLORIDE 0.9% 1,000 ML IRRIGATION PRN; +HEPARIN SODIUM,PORCINE 2,500 UNIT in SODIUM CHLORIDE 0.9% 250 ML IRRIGATION PRN; -SODIUM CHLORIDE 0.9% 1,000 ML IV ONE; +ZOLPIDEM 5 MG TAB PO PRN
[2022-10-17] MEDS ORDERED: ASPIRIN 81 MG ONE (07:45)
[2022-10-17 07:50] VITALS: RESP 18; TEMP 98.3
[2022-10-17 08:00] LABS: African American GFR (CKD) 82 (>60 ml/min/1.73 sqM); Anion Gap 6 mmol/L; Blood Urea Nitrogen 20 mg/dL (9-20); Calcium 9.2 mg/dL (8.4-10.2); Carbon Dioxide 28 mmol/L (22-30); Chloride 106 mmol/L (98-107); Glucose 123 mg/dL (74-99); Non-African American GFR(CKD) 71 (>60 ml/min/1.73 sqM); Potassium 4.3 mmol/L (3.5-5.1); Sodium 140 mmol/L (137-145)
[2022-10-17] MEDS ORDERED: LIDOCAINE 1% INJ 10MG/ML (20 ML MDV) ONE (08:08)
[2022-10-17] MEDS ORDERED: MIDAZOLAM 2 MG/2 ML VIAL IVP ONE (08:48)
[2022-10-17] MEDS ORDERED: LIDOCAINE 1% INJ 10MG/ML (20 ML MDV) SQ ONE (08:49)
[2022-10-17] MEDS ORDERED: fentaNYL (PF) 50 MCG/ML 2 ML AMP ONE (08:52)
[2022-10-17] MEDS ORDERED: fentaNYL (PF) 50 MCG/ML 2 ML AMP IVP ONE (08:53)
[2022-10-17] MEDS ORDERED: IOPAMIDOL-250 100ML BTL INTRAARTER ONE (09:06)
[2022-10-17] MEDS ORDERED: NALOXONE 0.4 MG/ML 1 ML VIAL IVP PRN (09:10)
[2022-10-17] MEDS ORDERED: SODIUM CHLORIDE 0.9% 1,000 ML in EMPTY BAG 1 BAG IV SCH (09:15)
--- NOTE | 2022-10-17 09:16 | P.PCN ---
Date of Procedure: 10/17/22 Operative Findings: AN ABDOMINAL AORTOGRAM AND BILATERAL LOWER EXTREMITIES RUNOFF PERFORMING PHYSICIAN: Erik Cullen MD PROCEDURE PERFORMED: 1. An abdominal aortogram 2. Bilateral lower extremities runoff 3. Gradient measurement across the right common iliac artery 4. Ultrasound-guided access of the right common femoral artery INDICATION: Bilateral lower extremity is intermittent claudication COMPLICATION: None LEVEL OF SEDATION: Moderate was sedation length of 18 minutes APPROACH: Right common femoral artery PROCEDURE DESCRIPTION: After obtaining informed consent and explaining the procedure benefits, risks, and complications, the patient was brought to the cardiac pit laborer. The right groin was prepped and draped in sterile fashion. The right common femoral artery was cannulated using micropuncture technique, under ultrasound guidance. A micropuncture wire was advanced, and the micropuncture sheath was advanced over the wire, then the micropuncture sheath was exchanged over an 0.35 wire into a 5-Cuban sheath dilator assembly then the wire and dilator were removed and sheath was flushed. We did an abdominal aortogram and bilateral lower extremities runoff using 5- Cuban pigtail catheter using a power injection. The catheter was initially placed at the level of the renal arteries, and it was pulled into above the bifurcation of the aorta into right and left common iliac arteries. The procedure was completed and there was no complications. SELECTIVE PERIPHERAL ANGIOGRAM: The abdominal aorta: Is angiographically normal The common iliac arteries: The right common iliac artery has a lesion appeared to be in the range of 60- 70%. I did perform gradient measurement across it and that came in to be significant at 40 mmHg. The left common iliac artery appeared to be a ngiographically normal The external iliac arteries: The right and left external is are angiographically normal The internal iliac arteries: The right and left internal is are patent The common femoral arteries: Both femorals appeared to be angiographically normal. Superficial femoral arteries: Both SFA appears to have mild disease only Popliteal arteries: The popliteal arteries appeared to be patent bilaterally Below the knees: There are 3 vessels runoff on the right and 2 vessels run off on the left with anterior tibial and peroneal an occluded posterior tibial artery. CONCLUSION: Severe disease involving the right common iliac artery Occluded left posterior tibial on short segment POSTPROCEDURE MANAGEMENT: [employer] SUPERVISOR of the right iliac and left posterior tibial
--- NOTE | 2022-10-17 09:28 | IR ---
EXAMINATION TYPE: IR cvc insert >=5 years DATE OF EXAM: 10/17/2022 COMPARISON: NONE HISTORY: Fluoroscopy time. Fluoroscopy was provided to the referring clinician.
[2022-10-17 15:48] VITALS: BP 136/64; PULSE 66
== END 2022-10-17 15:56 | disposition home or self-care (01) ==
LOC: CATHCVL 07:20
PROVIDERS: ATTEND Internal Medicine Interventional Cardiology
DX: I73.9 Peripheral vascular disease, unspecified (principal); I25.10 Atherosclerotic heart disease of native coronary artery without angina pectoris; I10 Essential (primary) hypertension; F17.210 Nicotine dependence, cigarettes, uncomplicated; E78.5 Hyperlipidemia, unspecified; Z82.49 Family history of ischemic heart disease and other diseases of the circulatory system; Z79.82 Long term (current) use of aspirin; Z79.899 Other long term (current) drug therapy
CPT/HCPCS: 36200; 75625; 75716; 76937; 80048; C1769 ×3; C1894; J2250; J2001; J3010; Q9966

== ENCOUNTER → 2022-11-12 | Outpatient (CLI) | payer MEDICARE ==
[2022-11-12 16:55] LABS: Blood Urea Nitrogen 15.4 mg/dL (9.0-27.0); Carbon Dioxide 25.9 mmol/L (21.6-31.8); Chloride 105 mmol/L (96-109); Potassium 4.7 mmol/L (3.5-5.5); Sodium 141 mmol/L (135-145)
== END | disposition home or self-care (01) ==
LOC: LABPAT 10:18
PROVIDERS: ATTEND Internal Medicine Interventional Cardiology
DX: Z01.818 Encounter for other preprocedural examination (principal); I73.9 Peripheral vascular disease, unspecified
CPT/HCPCS: 36415; 80051; 82565; 84520; 85027

== ENCOUNTER 2022-11-14 06:11 | Day surgery (SDC) | payer MEDICARE ==
[~2022-11-14 06:11] MED LIST changes: +HEPARIN SODIUM,PORCINE (1 ML) 2,500 UNIT in SODIUM CHLORIDE 0.9% 250 ML IRRIGATION PRN; -HEPARIN SODIUM,PORCINE 2,500 UNIT in SODIUM CHLORIDE 0.9% 250 ML IRRIGATION PRN
[2022-11-14] MEDS ORDERED: ALPRAZolam 0.5 MG TAB ONE (06:26)
[2022-11-14] MEDS ORDERED: ASPIRIN 81 MG ONE (06:27)
[2022-11-14] MEDS ORDERED: SODIUM CHLORIDE 0.9% 1,000 ML IV ONE ×2 (06:28→10:00)
[2022-11-14] MEDS ORDERED: cilostazoL 100 MG TAB PO STA (06:32)
[2022-11-14] MEDS ORDERED: METOPROLOL SUCCINATE (ER) 25 MG TAB.ER.24H PO STA (06:32)
[2022-11-14] MEDS ORDERED: lisinopriL 10 MG TAB PO STA (06:32)
[2022-11-14] MEDS ORDERED: NICOTINE 14MG/24HR PATCH TRANSDERM STA (06:56)
[2022-11-14] MEDS: RANOLAZINE 500 MG TAB.ER.12H PO SCH ×2 (07:00→20:01)
[2022-11-14] MEDS ORDERED: LIDOCAINE 1% INJ 10MG/ML (20 ML MDV) ONE (07:26)
[2022-11-14] MEDS ORDERED: HEPARIN SODIUM 1,000 UN/ML (10ML VL) ONE (07:26)
[2022-11-14 07:45] LABS: Basophils % (A) 1 %; Eosinophils # (A) 0.3 k/uL (0-0.7); Eosinophils % (A) 5 %; HCT 41.8 % (39.0-53.0); HGB 14.3 gm/dL (13.0-17.5); Lymphocytes # (A) 2.2 k/uL (1.0-4.8); Lymphocytes % (A) 36 %; MCH 33.4 pg (25.0-35.0); MCHC 34.2 g/dL (31.0-37.0); MCV 97.9 fL (80.0-100.0); Mean Platelet Volume 9.1; Monocytes # (A) 0.5 k/uL (0-1.0); Monocytes % (A) 8 %; Neutrophils % (A) 48 %; Platelet Count 167 k/uL (150-450); RBC 4.27 m/uL (4.30-5.90); RDW 12.7 % (11.5-15.5); WBC 6.2 k/uL (3.8-10.6)
[2022-11-14] MEDS ORDERED: LIDOCAINE 1% INJ 10MG/ML (30 ML VIAL-PF) SQ ONE (07:49)
[2022-11-14] MEDS ORDERED: MIDAZOLAM 2 MG/2 ML VIAL IVP ONE ×2 (07:50)
[2022-11-14] MEDS ORDERED: CLOPIDOGREL 75 MG TAB ONE (07:53)
[2022-11-14] MEDS ORDERED: CLOPIDOGREL 75 MG TAB PO ONE (07:56)
[2022-11-14] MEDS ORDERED: HEPARIN SODIUM 1,000 UN/ML (10ML VL) IV ONE (07:56)
[2022-11-14] MEDS ORDERED: IOPAMIDOL-250 100ML BTL INTRAARTER ONE ×2 (08:18)
[2022-11-14] MEDS ORDERED: SILDENAFIL CITRATE 50 MG PO PRN (08:28)
[2022-11-14] MEDS ORDERED: NALOXONE 0.4 MG/ML 1 ML VIAL IVP PRN (08:29)
[2022-11-14] MEDS ORDERED: SODIUM CHLORIDE 0.9% 1,000 ML in EMPTY BAG 1 BAG IV SCH (08:30)
--- NOTE | 2022-11-14 08:33 | P.PCN ---
Date of Procedure: 11/14/22 Operative Findings: PERCUTANEOUS PERIPHERAL INTERVENTION Performing physician Erik Cullen M.D. Procedure performed 1. Successful stenting of the right common iliac artery using 10.0 x 29 mm balloon expandable stent with an excellent angiographic results 2. Adjunctive use of intravascular ultrasound and lithotripsy balloon 3. Right common iliac artery and the right common femoral artery angiogram 4. Ultrasound guided access of the right common femoral artery Indication Right lower extremities intermittent claudication in this 67-year-old gentleman who underwent an angiogram and that revealed severe disease involving the right common iliac artery Approach Right common femoral artery Complications None Level of sedation Moderate with a sedation time of 39 minutes Procedure description After obtaining an informed consent the patient was brought to the cardiac radiographer cardiac catheterization. The right common femoral artery was cannulated using micropuncture technique under ultrasound guidance and the micropuncture wire passed easily then I placed initially a 6-Nauruan 23 cm and subsequently a 7-Nauruan 23 cm bright tip sheath. After that an angiogram was performed and showed severe disease involving the right common iliac artery. I did wire the lesion using 014 wire and then intravascular ultrasound was performed and showed calcified lesion with a diameter of about 10 mm. I did lithotripsy balloon and that was 9 mm balloon before I deployed 10 mm white 29 mm balloon expandable stent where the stent was positioned under fluoroscopy guidance and deployed under fluoroscopy guidance. The following angiogram showed good angiographic results and the procedure was completed with no complication. By the end I did selective right common femoral artery angiogram Postprocedure management 1. Dual antiplatelet therapy 2. Aggressive cholesterol control 3. Risk factors modification 4. Follow-up with the patient
--- NOTE | 2022-11-14 08:54 | IR ---
EXAMINATION TYPE: IR stent intravas non coronary DATE OF EXAM: 11/14/2022 COMPARISON: NONE HISTORY: Fluoroscopy time. Fluoroscopy was provided to the referring clinician.
[2022-11-14] MEDS: ATORVASTATIN 80 MG TAB PO SCH (18:05)
[2022-11-14] MEDS: cilostazoL 100 MG TAB PO SCH (20:01)
[2022-11-14] MEDS ORDERED: ACETAMINOPHEN TAB 325 MG TAB PO PRN (20:10)
[2022-11-14] MEDS ORDERED: RANOLAZINE 500 MG TAB.ER.12H PO SCH (21:00)
[2022-11-15 07:08] LABS: African American GFR (CKD) 78 (>60 ml/min/1.73 sqM); Non-African American GFR(CKD) 68 (>60 ml/min/1.73 sqM)
[2022-11-15 08:49] VITALS: BP 160/76; PULSE 58; RESP 14; TEMP 97.8
[2022-11-15] MEDS ORDERED: METOPROLOL SUCCINATE (ER) 25 MG TAB.ER.24H PO SCH (09:00)
[2022-11-15] MEDS ORDERED: ASPIRIN 81 MG PO SCH (09:00)
[2022-11-15] MEDS ORDERED: lisinopriL 10 MG TAB PO SCH (09:00)
[2022-11-15] MEDS ORDERED: CLOPIDOGREL 75 MG TAB PO SCH (09:00)
[2022-11-15] MEDS ORDERED: NICOTINE 21MG/24HR PATCH TRANSDERM SCH (09:00)
[2022-11-15] MEDS: ATORVASTATIN 80 MG TAB PO SCH (09:27)
[2022-11-15] MEDS: cilostazoL 100 MG TAB PO SCH (09:28)
[2022-11-15] MEDS: RANOLAZINE 500 MG TAB.ER.12H PO SCH (09:33)
--- NOTE | 2022-11-15 09:42 | P.DS ---
Providers Attending physician: Erik Cullen Primary care physician: [facility] Course: The patient is a 67-year-old gentleman who underwent yesterday successful angioplasty and stenting of the right iliac artery from right common femoral artery approach. He was seen and evaluated this morning. He is asymptomatic. The right groin is soft and nontender with no bruises. The patient is going to be discharged home on dual antiplatelet therapy along with a statin and I'll follow-up with the patient next week in the office as an outpatient Plan - Discharge Summary Discharge Rx Participant: No New Discharge Prescriptions: New Clopidogrel [Plavix] 75 mg PO DAILY #90 tab Continue lisinopriL [Zestril] 10 mg PO DAILY Rosuvastatin Calcium [Crestor] 40 mg PO DAILY Metoprolol Succinate (ER) [Toprol XL] 25 mg PO DAILY cilostazoL [Pletal] 50 mg PO BID Aspirin 81 mg PO DAILY Ranolazine [Ranexa] 500 mg PO BID Albuterol Sulfate [Albuterol Sulfate Hfa] 2 puff PO RT-Q6H PRN PRN Reason: Shortness Of Breath Sildenafil Citrate [Viagra] 50 mg PO DIRECTED PRN PRN Reason: ed Nicotine 21Mg/24Hr Patch [Habitrol] 1 each TRANSDERM DAILY Discharge Medication List Metoprolol Succinate (ER) [Toprol XL] 25 mg PO DAILY 02/10/22 [History] Ranolazine [Ranexa] 500 mg PO BID 02/10/22 [History] Rosuvastatin Calcium [Crestor] 40 mg PO DAILY 02/10/22 [History] lisinopriL [Zestril] 10 mg PO DAILY 02/10/22 [History] Albuterol Sulfate [Albuterol Sulfate Hfa] 2 puff PO RT-Q6H PRN 06/13/22 [History] Sildenafil Citrate [Viagra] 50 mg PO DIRECTED PRN 07/18/22 [History] Aspirin 81 mg PO DAILY 10/10/22 [History] Nicotine 21Mg/24Hr Patch [Habitrol] 1 each TRANSDERM DAILY 10/10/22 [History] cilostazoL [Pletal] 50 mg PO BID 10/10/22 [History] Clopidogrel [Plavix] 75 mg PO DAILY #90 tab 11/15/22 [Rx] Follow up Appointment(s)/Referral(s): Erik Cullen MD [STAFF PHYSICIAN] - 1 Week Patient Instructions/Handouts: Peripheral Artery Disease (DC), Moderate Sedation (DC), Fall Prevention (DC), Amyloidosis (GEN), Peripheral Vascular Stent Placement (DC) Activity/Diet/Wound Care/Special Instructions: No driving for two days. Avoid heavy lifting greater than 10 lbs , pushing, pulling, s straining, flights of stairs for three days. ok to shower tomorrow but no baths, pools, soaking in tubs for three days to avoid risk of infection. signs of infection ie: fever, rash, drainage from puncture site, swelling contact doctor or return to ER immediately. Heavy bleeding from puncture site apply firm direct pressure and return to ER. Do not attempt to drive self. low sodium/low fat diet Medications as directed by ct mri technologist.
== END 2022-11-15 10:49 | disposition home or self-care (01) ==
LOC: CATHCVL 06:11 → 6NMEDSUR 10:31 → CATHCVL 11-15 10:49
PROVIDERS: ATTEND Internal Medicine Interventional Cardiology
DX: I73.9 Peripheral vascular disease, unspecified (principal); I10 Essential (primary) hypertension; E78.5 Hyperlipidemia, unspecified; F17.210 Nicotine dependence, cigarettes, uncomplicated; Z79.02 Long term (current) use of antithrombotics/antiplatelets; Z79.899 Other long term (current) drug therapy; Z79.82 Long term (current) use of aspirin; Z82.49 Family history of ischemic heart disease and other diseases of the circulatory system
CPT/HCPCS: 37221; 76937; 37252; 82565; 85025; C1760; C1769 ×4; C1876; C1894; C1753; C9765; J2250; J2001; J1644; Q9966

== ENCOUNTER → 2023-04-07 | Outpatient (CLI) | payer MEDICARE ==
--- NOTE | 2023-04-07 14:06 | CTL ---
EXAMINATION TYPE: CT Low Dose Lung DATE OF EXAM ORDERED: 04/07/2023 HISTORY:. Lung cancer screening CT DLP: 120.[address] CTDI: 3.2 mGy Automated exposure control for dose reduction was used. COMPARISON: None TECHNIQUE: Low dose computed tomography scan was performed through the chest at 1 mm thick sections a nd reconstructed images in multiple planes at 1 mm and [address] DIAGNOSTIC QUALITY: Satisfactory FINDINGS: There is a 3 to 4 mm nodule in the right upper lobe. No suspicious lung masses or nodules are seen. There is no airspace consolidation or abnormal interstitial density. There is no pleural effusion, pleural thickening or pneumothorax. The great vessels chest are normal Adenopathy. Limited scanning the upper abdomen reveals no gross abnormality. No focal osseous lesions are seen. IMPRESSION: 1. Lung RADS category 2 benign findings. Continue routine screening at yearly limits. 2. No acute cardiopulmonary disease..
== END | disposition home or self-care (01) ==
LOC: RADCTMAIN 12:47
PROVIDERS: ATTEND Family Medicine
DX: Z12.2 Encounter for screening for malignant neoplasm of respiratory organs (principal); F17.210 Nicotine dependence, cigarettes, uncomplicated
CPT/HCPCS: 71271

== ENCOUNTER → 2024-04-26 | Outpatient (CLI) | payer MEDICARE ==
--- NOTE | 2024-04-26 14:04 | CTL ---
EXAMINATION TYPE: CT Low Dose Lung DATE OF EXAM ORDERED: 04/26/2024 COMPARISON: 04/07/2023 CLINICAL INDICATION: Male, 68 years old with history of Z12.2 LUNG CA SCR F17.210 CURRENT SMOKER; [facility] , f/u lung screening for nicotine dependence of 1ppd x49 years, current smoker., Lung cancer screenin g, History of Smoking/tobacco use. TECHNIQUE: Low dose computed tomography scan was performed through the chest at 1 mm thick sections a nd reconstructed images in multiple planes at 1 mm and [address] DLP: 142.[address] CTDI: 3.3 mGy Automated exposure control for dose reduction was used. CT DIAGNOSTIC QUALITY: Satisfactory FINDINGS: Findings: There are multiple stable sub-4 mm nodules and micronodules. There is no new or suspicious lung mass or nodule. There is no lung consolidation or abnormal interstitial density. There is no pleural effusion or pneumothorax. The great vessels and heart are normal in size. There is no mediastinal, hilar or axillary adenopathy. Limited scanning through the upper abdomen reveals no gross abnormality. There are no focal osseous lesions. IMPRESSION: 1. Lung RADS category 2 benign. Continue routine screening at yearly intervals. 2. No acute cardiopu lmonary disease. [facility], , 04/26/2024 2:02 PM
== END | disposition home or self-care (01) ==
LOC: RADCTMAIN 12:41
PROVIDERS: ATTEND Family Medicine
DX: Z12.2 Encounter for screening for malignant neoplasm of respiratory organs (principal); F17.210 Nicotine dependence, cigarettes, uncomplicated
CPT/HCPCS: 71271